=== PATIENT | female | born 1975 | race Caucasian/White ===

== ENCOUNTER → 2018-05-09 | Outpatient (CLI) | payer OTHER ==
[~2018-05-09] MED LIST: OPTIRAY 320 IV PRN
[2018-05-09 13:02] LABS: BASO % 0.1 %; BASO ABS # 0.01 K/uL (0-0.2); EOS % 0.4 %; EOS ABS # 0.04 K/uL (0-0.5); HEMOGLOBIN 14.2 g/dL (12.0-16.0); IG# 0.01 K/uL (0.00-0.02); LYMPH % 28.2 %; LYMPH ABS # 2.54 K/uL (1.2-3.4); MEAN CELL VOLUME 93.8 fL (80-100); MEAN CORPUSCULAR HEMOGLOBIN 32.5 pg (25-34); MEAN CORPUSCULAR HGB CONC 34.6 g/dl (32-36); MEAN PLATELET VOLUME 10.4 fL (7.4-10.4); MONO % 6.2 %; MONO ABS # 0.56 K/uL (0.11-0.59); NEUT ABS # 5.84 K/uL (1.4-6.5); PLATELET COUNT 341 K/uL (130-400); RED CELL DISTRIBUTION WIDTH CV 12.7 % (11.5-14.5); RED CELL DISTRIBUTION WIDTH SD 43.8 fL (36.4-46.3)
[2018-05-09 13:19] LABS: ALBUMIN 3.6 gm/dl (3.4-5.0); ALKALINE PHOSPHATASE 69 U/L (45-117); ALT/SGPT 27 U/L (12-78); AST/SGOT 21 U/L (15-37); BLOOD UREA NITROGEN 7 mg/dl (7-18); CALCIUM 9.3 mg/dl (8.5-10.1); CARBON DIOXIDE 25 mmol/L (21-32); CREATININE 0.72 mg/dl (0.60-1.20); GLUCOSE 86 mg/dl (70-99); POTASSIUM 3.8 mmol/L (3.5-5.1); SODIUM 135 mmol/L (136-145); TOTAL PROTEIN 7.6 gm/dl (6.4-8.2)
--- NOTE | 2018-05-09 15:56 | DIAGNOSTIC IMAGING REPORT ---
CT OF THE ABDOMEN AND PELVIS WITH CONTRAST CLINICAL HISTORY: Left lower quadrant mass. COMPARISON STUDY: None. TECHNIQUE: Following IV administration of 119 mL of [id number]-[id number], axial images of the abdomen and pelvis were obtained from the lung bases to the proximal femurs. Images were reviewed in the axial, sagittal, and coronal planes. IV contrast was administered without complication. A dose lowering technique was utilized adhering to the principles of ALARA. Oral contrast was administered. CT DOSE: 1336.70 mGy.cm FINDINGS: Lung bases are clear. A small hiatal hernia is noted. There is probable fatty infiltration of the liver. No hepatic lesions are identified. Morphology of the liver is normal. The spleen, adrenal glands, kidneys and pancreas are normal. There is no biliary or pancreatic ductal dilatation. There is no hydronephrosis or hydroureter. Caliber and wall thickness of small and large bowel are normal. The appendix is normal. No lymphadenopathy or mass is identified within the abdomen or the pelvis. There is no ascites. The ovaries are not enlarged. No abdominal hernia is identified. No suspicious osseous lesion is noted. IMPRESSION: 1. No abdominal or pelvic mass identified. No hernia identified by CT. 2. No acute process within the abdomen or pelvis. 3. Small hiatal hernia. 4. Probable fatty infiltration of the liver. Electronically signed by: Sergio Marin M.D. 05/09/2018 3:55 PM Dictated Date/Time: 05/09/2018 3:49 PM
== END | disposition home or self-care (01) ==
LOC: C.CTS 10:41
PROVIDERS: ATTEND Internal Medicine
DX: R10.32 Left lower quadrant pain (principal); R19.04 Left lower quadrant abdominal swelling, mass and lump; K44.9 Diaphragmatic hernia without obstruction or gangrene